=== PATIENT | male | born 1965 ===

== ENCOUNTER → 2025-03-15 | Outpatient (CLI) | payer SELFPAY ==
[2025-03-15 17:48] LABS: Prostate Specific Antigen 1.570 ng/mL (0.000-4.000)
== END | disposition home or self-care (01) ==
LOC: LAB SHORT 15:42 → LAB 15:42
PROVIDERS: Nurse Practitioner Family
DX: Z12.5 Encounter for screening for malignant neoplasm of prostate (principal)
CPT/HCPCS: G0103